=== PATIENT | male | born 1940 | race African-American/Black ===

== ENCOUNTER 2018-06-07 06:10 | Observation (INO) | payer OTHER ==
[2018-05-22 14:51] LABS: INR 1.07; PROTHROMBIN TIME 13.1 seconds (11.9-14.5)
[2018-05-22 14:52] LABS: PARTIAL THROMBOPLASTIN TIME 28.4 seconds (23.8-35.5)
[2018-05-22 14:55] LABS: BASOPHILS % 0.6 % (0.0-1.0); EOSINOPHILS # (AUTO) 0.3 (0.0-0.4); EOSINOPHILS % 4.2 % (0.0-6.0); HEMATOCRIT 42.8 % (38.2-49.6); HEMOGLOBIN 13.8 g/dL (14.0-18.0); LYMPHOCYTES # (AUTO) 2.1 (1.0-3.2); LYMPHOCYTES % 32.3 % (18.0-39.1); MEAN CORPUSCULAR HEMOGLOBIN 27.8 pg (28-32); MEAN CORPUSCULAR HGB CONC 32.2 g/dL (31-35); MEAN CORPUSCULAR VOLUME 86.3 fL (81-99); MONOCYTES # (AUTO) 0.5 (0.2-0.8); MONOCYTES % 8.5 % (4.4-11.3); NEUTROPHILS # (AUTO) 3.5 (2.1-6.9); NEUTROPHILS % 54.2 % (38.7-80.0); PLATELET COUNT 192 x10e3/uL (140-360); RED BLOOD COUNT 4.96 x10e6/uL (4.3-5.7); RED CELL DISTRIBUTION WIDTH 14.6 % (11.7-14.4)
[2018-05-22 14:59] LABS: ANION GAP 15.4 mmol/L (8-16); BLOOD UREA NITROGEN 20 mg/dL (7-26); BUN/CREATININE RATIO 17 (6-25); CALCIUM 11.4 mg/dL (8.4-10.2); CARBON DIOXIDE 23 mmol/L (22-29); CHLORIDE 110 mmol/L (98-107); CREATININE, SERUM 1.16 mg/dL (0.72-1.25); EST GLOMERULAR FILTRATION RATE > 60 ML/MIN (60-); GLUCOSE 78 mg/dL (74-118); POTASSIUM 4.4 mmol/L (3.5-5.1); SODIUM 144 mmol/L (136-145)
--- NOTE | 2018-05-22 15:32 | Diagnostic Imaging Report ---
Frontal and lateral views of the chest. HISTORY: Preop, back surgery COMPARISON: None available. DISCUSSION: Lungs: The lungs are mildly hyperinflated. No evidence of a consolidative pneumonia or pulmonary alveolar edema. A 3.7 cm curvilinear density with central lucency projects superior to the periphery of the left hemidiaphragm on the frontal view. Pleura: No pleural effusion or pneumothorax. Heart and mediastinum: The cardiomediastinal silhouette appears unremarkable. Calcified left hilar lymph nodes. Bones: No acute osseous lesion. IMPRESSION: 1. No consolidative pneumonia or pulmonary edema. 2. Possible 3.7 cm left peripheral diaphragmatic hernia. A follow-up CT of the chest without contrast would provide further characterization. Signed by: Dr. Clint Thomas D.O., M.M.M. on 05/22/2018 3:27 PM
[~2018-06-07] VITALS: Ht 172.7 cm; Wt 89.6 kg
[~2018-06-07 06:10] MED LIST: ARICEPT5 MG PO; ASPIR 8181 MG PO; ATORVASTATIN CA20 MG PO; CALCIUM CARBON500 MG PO; CENTRUM SILVER1 EAC3 PO; GLYCOPYRROLATE1 MG PO; LEVETIRACETAM500 MG PO; VITAMIN D3400 UNIT PO
[2018-06-07] MEDS ORDERED: BACITRACIN 50,000 UNIT VIAL ONE (06:35)
[2018-06-07] MEDS ORDERED: THROMBIN FOR SOLN 5,000 UNIT VIAL ONE (06:35)
[2018-06-07] MEDS ORDERED: BUPIVACAINE 0.5%/EPI 30 ML SDV INJ ONE (06:35)
[2018-06-07] MEDS ORDERED: GELATIN SPONGE 12-7MM ONE (06:36)
[2018-06-07] MEDS ORDERED: CEFAZOLIN SOD 1 GM VIAL ONE (06:44)
[2018-06-07] MEDS ORDERED: LIDOCAINE HCL (LTA) 4 ML SOLN ONE (07:03)
[2018-06-07] MEDS ORDERED: HYDROMORPHONE 2MG/ML 2 MG/ML ML IV PRN (09:15)
[2018-06-07] MEDS ORDERED: PROMETHAZINE HCL (IM) 25 MG/ML VIAL IM PRN (09:15)
[2018-06-07] MEDS ORDERED: ACETAMINOPHEN 325 MG TAB PO PRN (09:15)
[2018-06-07] MEDS ORDERED: ONDANSETRON HCL INJ 2 MG/ML VIAL IV PRN (09:15)
[2018-06-07] MEDS ORDERED: CEPACOL SORE THROAT LOZENGES PO PRN (09:15)
[2018-06-07] MEDS ORDERED: MORPHINE SULFATE 5 MG/ML VIAL IM PRN (09:15)
[2018-06-07] MEDS ORDERED: CARISOPRODOL 350 MG TAB PO PRN (09:15)
[2018-06-07] MEDS ORDERED: MAGNESIUM/ALUMINUM/SIMETHICONE 30 ML UDC PO PRN (09:15)
--- NOTE | 2018-06-07 09:54 | Operative Report ---
DATE OF PROCEDURE: June 07, 2018 PREOPERATIVE DIAGNOSIS: Right L4-L5 lateral recess stenosis, M48.062. POSTOPERATIVE DIAGNOSIS: Right L4-L5 lateral recess stenosis, M48.062. PROCEDURE: Right L4-L5 laminotomy, medial facetectomy and microsurgical lateral recess decompression, 66940. ANESTHESIA: General. INDICATIONS: Patient is a 78-year-old man who presents with right L4-L5 lateral recess stenosis and was taken to the operating room for microsurgical lateral recess decompression. PROCEDURE: After induction of general anesthesia, the patient was placed on the operating table in the prone position over a Clifford frame. Lumbar region was prepped and draped in a sterile fashion. A preoperative x-ray was obtained. A small midline incision was created. Lumbar fascia was opened to the right of the midline, and subperiosteal dissection was carried out to expose the right side of L4 and L5 laminae and the medial aspect of the hypertrophic facet joint. A 2nd x-ray confirmed correct localization. The operating microscope was brought in. A high-speed drill equipped with a mary bur was used to drill the inferior aspect of lamina of L4 and the medial aspect of the L4-L5 facet joint, and the superior rim of the lamina of L5. The hypertrophic ligamentum flavum was resected. The dural sac and L5 traversing nerve root were fully exposed and decompressed. Meticulous hemostasis was secured. The dura was covered with a piece of fat harvested from the subcutaneous space. The lumbar fascia was closed with 0 Vicryl sutures. Subcutaneous layer was closed with 2-0 Vicryl sutures. The skin was closed with 3-0 Monocryl sutures in a subcuticular fashion. Steri-Strips and a dressing were applied. The patient was awakened, extubated and taken to the postanesthesia care unit in stable condition. No intraoperative complications were encountered. Estimated blood loss was 10 mL. Job#: [id number] RI
[2018-06-07 10:18] VITALS: BP 162/86
[2018-06-07] MEDS: LACTATED RINGER'S 1,000 ML IV SCH ×2 (11:20→22:28)
[2018-06-07 11:36] VITALS: BP 162/86
[2018-06-07] MEDS: OXYCODONE/ACETAMINOPHEN 5-325 1 EACH TABLET PO PRN ×2 (11:40→22:05)
[2018-06-07] MEDS: MULTIVITAMINS/MINERALS TAB PO SCH (11:51)
[2018-06-07] MEDS: CHOLECALCIFEROL 1,000 UNIT TAB PO SCH (11:51)
[2018-06-07] MEDS ORDERED: CEFAZOLIN SOD 1 GM/D5W 50ML 50 ML IV SCH (14:00)
[2018-06-07 15:44] VITALS: BP 113/67
[2018-06-07] MEDS: GLYCOPYRROLATE 1 MG TAB PO SCH ×2 (16:00→21:50)
[2018-06-07] MEDS: CEFAZOLIN SOD 1 GM VIAL IV SCH (16:08)
[2018-06-07] MEDS ORDERED: ONDANSETRON HCL INJ 2 MG/ML VIAL ONE (18:45)
[2018-06-07] MEDS ORDERED: ACETAMINOPHEN 1000 MG/100 ML IV ONE (18:45)
[2018-06-07] MEDS ORDERED: LIDOCAINE HCL 2% LOCAL INJ 5 ML SDV VIAL INJ ONE (18:45)
[2018-06-07] MEDS ORDERED: DEXAMETHASONE SOD PHOS INJ 4 MG/ML VIAL ONE (18:45)
[2018-06-07] MEDS ORDERED: GLYCOPYRROLATE INJ 1MG/ 5 ML SYR ONE (18:45)
[2018-06-07] MEDS ORDERED: ROCURONIUM BROMIDE 10 MG/ML 5ML VIAL ONE (18:45)
[2018-06-07] MEDS ORDERED: PROPOFOL IV EMULSION 10 MG/ML 20 ML VIAL ONE (18:45)
[2018-06-07] MEDS ORDERED: SEVOFLURANE INHAL SOLN 250 ML PEN BTL ONE (18:45)
[2018-06-07] MEDS ORDERED: MIDAZOLAM HCL 2 MG/2 ML VIAL ONE (18:57)
[2018-06-07] MEDS ORDERED: FENTANYL CITRATE/PF 100MCG/2 ML INJ ONE (18:57)
[2018-06-07 20:00] VITALS: BP 110/62
[2018-06-07] MEDS ORDERED: ATORVASTATIN 40 MG TAB PO SCH (21:00)
[2018-06-07] MEDS ORDERED: ATORVASTATIN 20 MG TAB PO SCH (21:00)
[2018-06-07] MEDS ORDERED: DONEPEZIL HCL 5 MG TAB PO SCH (21:00)
[2018-06-07] MEDS ORDERED: ZOLPIDEM TARTRATE 5 MG TAB PO PRN (21:00)
[2018-06-07] MEDS: LEVETIRACETAM 500 MG TAB PO SCH (21:50)
[2018-06-07] MEDS ORDERED: MORPHINE SULFATE INJ 10 MG/ML IM PRN ×2 (22:00)
[2018-06-08] VITALS: BP 118/66
[2018-06-08] MEDS: LACTATED RINGER'S 1,000 ML IV SCH ×2 (01:44→08:31)
[2018-06-08 04:00] VITALS: BP 123/67
[2018-06-08 08:20] VITALS: BP 126/68
[2018-06-08] MEDS: GLYCOPYRROLATE 1 MG TAB PO SCH (08:31)
[2018-06-08] MEDS: CEFAZOLIN SOD 1 GM VIAL IV SCH ×2 (08:31)
[2018-06-08] MEDS: LEVETIRACETAM 500 MG TAB PO SCH (08:31)
[2018-06-08] MEDS: CHOLECALCIFEROL 1,000 UNIT TAB PO SCH (08:31)
[2018-06-08] MEDS: MULTIVITAMINS/MINERALS TAB PO SCH (08:31)
[2018-06-08 09:00] VITALS: BP 126/68
[2018-06-08] MEDS ORDERED: NON-FORMULARY MEDICATION (Cholecalciferol (Vitamin D3) (Vitamin D3) 50 MCG) PO SCH (09:00)
[2018-06-08] MEDS ORDERED: OYST-CAL-D 500MG TABLET PO SCH (09:00)
[2018-06-08] MEDS ORDERED: NON-FORMULARY MEDICATION (Mu-Vits-Min Th/Lycopene/Lutein (Centrum Silver Tablet) 1 TAB) PO SCH (09:00)
[2018-06-08] MEDS ORDERED: NORCO 7.5-3251 EACH PO (09:47)
--- OUTSIDE RECORDS SUMMARY | 2018-06-19 10:26 | XMS REPORT ---
Author Author [facility] Address Unknown Phone Unavailable Care Team Providers Care Cutting Table Operator Name Role Phone RENÉE ALLEN Unavailable Unavailable Problems This patient has no known problems. Allergies, Adverse Reactions, Alerts This patient has no known allergies or adverse reactions. Medications This patient has no known medications. Results Test Description Test Time Test Comments Text Results Atomic Results Result Comments CHEST 2 VIEWS 2018-05-22 15:24:00 [facility] [address] [place], [place] [address] Patient Name: BRENDA ARROYO MR #: [id number] : 1940 Age/Sex: 78/M Req #: [id number] Adm Physician: Ordered by: RENÉE ALLEN MD Report #: [id number] Location: OR Room/Bed: Procedure: [id number] DX/CHEST 2 VIEWS Exam Date: 05/22/18 Exam Time: 1450 REPORT STATUS: Signed Frontal and lateral views of the chest. HISTORY: Preop, back surgery COMPARISON: None available. DISCUSSION: Lungs: The lungs are mildly hyperinflated. No evidence of a consolidative pneumonia or pulmonary alveolar edema. A 3.7 cm curvilinear density with central lucency projects superior to the periphery of the left hemidiaphragm on the frontal view. Pleura: No pleural effusion or pneumothorax. Heart and mediastinum: The cardiomediastinal silhouette appears unremarkable. Calcified left hilar lymph nodes. Bones: No acute osseous lesion. IMPRESSION: 1. No consolidative pneumonia or pulmonary edema. 2. Possible 3.7 cm left peripheral diaphragmatic hernia. A follow-up CT of the chest without contrast would provide further characterization. Signed by: Dr. Jose Angel Thomas D.O., M.M.M. on 05/22/2018 3:27 PM Dictated By: JOSE ANGEL THOMAS DO 1527 Transcribed By: BRICE on 05/22/18 1527 COPY TO: RENÉE ALLEN MD
--- OUTSIDE RECORDS SUMMARY | 2018-06-19 10:26 | XMS REPORT | Clinical Summary ---
Author Author [facility] Address Unknown Phone Unavailable Care Team Providers Care Liability Claims Manager Name Role Phone Barrington Aparicio MD PCP Allergies No Known Allergies Current Medications Prescription Sig. Disp. Refills Start End Date Status Date lidocaine (LIDODERM) 5 % Place 1 patch on the skin 30 patch 0 08/28/20 09/27/19 daily for 30 days. Remove 17 18 & Discard patch within 12 hours or as directed by Active Problems Not on file Encounters Date Type Specialty Care Team Description 08/28/2017 Emergency Emergency Medicine Claude Steele, EQUIPMENT RECORDS SUPERVISOR-C Acute right-sided low Jasiel Mari, back pain with right-sided sciatica (Primary Dx); Right hip pain after 06/06/2017 Social History Tobacco Use Types Packs/Day Years Used Date Never Assessed Sex Assigned at Date Recorded Not on file Last Filed Vital Signs Vital Sign Reading Time Taken Blood Pressure 146/76 08/28/2017 11:40 PM [employer]ACK[facility] STR[employer] Pulse 67 08/28/2017 11:40 PM [employer] [employer] Temperature 36.8 C (98.3 F) 08/28/2017 11:40 PM [employer]ACKET STRING[employer] Respiratory Rate 18 08/28/2017 11:40 PM [employer]ACKET STRINGER Oxygen Saturation 94% 08/28/2017 11:40 PM [employer]ACK[employer] Inhaled Oxygen - - Concentration Weight - - Height 172.7 cm (5' 8") 08/28/2017 9:01 PM [employer]ACK[employer] Body Mass Index - - Plan of Treatment Date Type Specialty Care Team Description 06/27/2018 Office Visit Physical Therapy System, Provider Not In, Isaiah Griggs MD [address], [address] [place], [place] [address] Lino Robles, PT Health Maintenance Due Date Last Done Comments SHINGRIX VACCINE (#1) 1991 ZOSTER VACCINE 2001 PNEUMOCOCCAL 2006 POLYSACCHARIDE VACCINE AGE 65 AND OVER PNEUMOCOCCAL-13 2006 INFLUENZA VACCINE 04/04/2018 Procedures Procedure Name Priority Date/Time Associated Diagnosis Comments XR LUMBAR SPINE COMPLETE STAT 08/28/2017 Results for this 4+ VW 10:10 PM RACKET STRINGER procedure are in the results section. XR HIP 2-3 VIEWS RIGHT STAT 08/28/2017 Results for this 10:10 PM RACKET STRINGER procedure are in the results section. after 06/06/2017 Results * XR Lumbar Spine Complete 4+ Vw (08/28/2017 10:10 PM) Narrative Performed At EXAMINATION: XR LUMBAR SPINE COMPLETE 4VW [facility] CLINICAL HISTORY: BACK PAINUNSPECIFIED COMPARISON:None IMPRESSION: No displaced fracture. Moderate degenerative disc disease L4-5 with mild degenerative disc disease L3-4. Small anterior osteophytes throughout the lumbar spine. Moderate facet arthropathy L5-S1, and at least mild facet arthropathy L4-5. Calcified atherosclerosis abdominal aorta. [id number] Procedure Note Interface, Radiology Results Incoming - 08/28/2017 10:18 PM RACKET STRINGER EXAMINATION: XR LUMBAR SPINE COMPLETE 4 VW CLINICAL HISTORY: BACK PAIN UNSPECIFIED COMPARISON: None IMPRESSION: No displaced fracture. Moderate degenerative disc disease L4-5 with mild degenerative disc disease L3-4. Small anterior osteophytes throughout the lumbar spine. Moderate facet arthropathy L5-S1, and at least mild facet arthropathy L4-5. Calcified atherosclerosis abdominal aorta. [id number] Performing Organization Address City/State/Zipcode Phone Number [facility] [address] [place] [address] * XR Hip 2-3 View Right (08/28/2017 10:10 PM) Narrative Performed At EXAM:XR HIP 2-3 VIEWS RIGHT [facility] CLINICAL HISTORY:right hip pain COMPARISON:None. IMPRESSION: 1.No evidence of acute right displaced right hip fracture or dislocation. Mild to moderate degenerative changes of the bilateral hips noted. Multiple pelvic phleboliths identified. [facility]-[id number] Procedure Note Interface, Radiology Results Incoming - 08/28/2017 10:44 PM RACKET STRINGER EXAM: XR HIP 2-3 VIEWS RIGHT CLINICAL HISTORY: right hip pain COMPARISON: None. IMPRESSION: 1. No evidence of acute right displaced right hip fracture or dislocation. Mild to moderate degenerative changes of the bilateral hips noted. Multiple pelvic phleboliths identified. [facility]-[id number] Performing Organization Address City/State/Zipcode Phone Number [facility] [address] [place] [address] after 06/06/2017 Insurance Payer Benefit Subscriber ID Type Phone Address Plan / Group [employer] xxxxxxxxx HMO MCR xxxxxxxxxxx FOR LIFE
--- OUTSIDE RECORDS SUMMARY | 2018-06-19 10:35 | XMS REPORT | Clinical Summary ---
Author Author [facility] Address Unknown Phone Unavailable Care Team Providers Care Automatic Profile Sander Operator Name Role Phone Barrington Aparicio MD PCP [...] Description 08/28/2017 Emergency Emergency Medicine Claude Steele, RV DETAILER-C Acute right-sided low Jasiel Mari, back pain with right-sided sciatica (Primary Dx); Right hip pain after 06/06/2017 Social History Tobacco Use Types Packs/Day Years Used Date Never Assessed Sex Assigned at Date Recorded Not on file Last Filed Vital Signs Vital Sign Reading Time Taken Blood Pressure 146/76 08/28/2017 11:40 PM FOLDING MACHINE FEEDER Pulse 67 08/28/2017 11:40 PM FOLDING MACHINE FEEDER Temperature 36.8 C (98.3 F) 08/28/2017 11:40 PM FOLDING MACHINE FEEDER Respiratory Rate 18 08/28/2017 11:40 PM FOLDING MACHINE FEEDER Oxygen Saturation 94% 08/28/2017 11:40 PM FOLDING MACHINE FEEDER Inhaled Oxygen - - Concentration Weight - - Height 172.7 cm (5' 8") 08/28/2017 9:01 PM FOLDING MACHINE FEEDER Body Mass Index - - Plan of Treatment Date Type Specialty Care Team Description 06/27/2018 Office Visit Physical Therapy System, Provider Not In, Isaiah Griggs MD [address], [address] [place], [place] [address] Lino Robles, PT Health Maintenance Due Date Last Done Comments SHINGRIX VACCINE (#1) 1991 ZOSTER VACCINE 2001 PNEUMOCOCCAL 2006 POLYSACCHARIDE VACCINE AGE 65 AND OVER PNEUMOCOCCAL-13 2006 INFLUENZA VACCINE 04/04/2018 Procedures Procedure Name Priority Date/Time Associated Diagnosis Comments XR LUMBAR SPINE COMPLETE STAT 08/28/2017 Results for this 4+ VW 10:10 PM FOLDING MACHINE FEEDER procedure are in the results section. XR HIP 2-3 VIEWS RIGHT STAT 08/28/2017 Results for this 10:10 PM FOLDING MACHINE FEEDER procedure are in the results section. after [...] facet arthropathy L4-5. Calcified atherosclerosis abdominal aorta. [id number] Procedure Note Interface, Radiology Results Incoming - 08/28/2017 10:18 PM FOLDING MACHINE FEEDER EXAMINATION: XR LUMBAR SPINE COMPLETE 4 VW CLINICAL HISTORY: BACK PAIN UNSPECIFIED COMPARISON: None IMPRESSION: No displaced fracture. Moderate degenerative disc disease L4-5 with mild degenerative disc disease L3-4. Small anterior osteophytes throughout the lumbar spine. Moderate facet arthropathy L5-S1, and at least mild facet arthropathy L4-5. Calcified atherosclerosis abdominal aorta. [id number] Performing Organization Address City/State/Zipcode Phone Number [facility] [address] [place] [address] * XR Hip 2-3 View Right (08/28/2017 10:10 PM) Narrative Performed At EXAM:XR HIP 2-3 VIEWS RIGHT [facility] CLINICAL HISTORY:right hip pain COMPARISON:None. IMPRESSION: 1.No evidence of acute right displaced right hip fracture or dislocation. Mild to moderate degenerative changes of the bilateral hips noted. Multiple pelvic phleboliths identified. [id number] Procedure Note Interface, Radiology Results Incoming - 08/28/2017 10:44 PM FOLDING MACHINE FEEDER EXAM: XR HIP 2-3 VIEWS RIGHT CLINICAL HISTORY: right hip pain COMPARISON: None. IMPRESSION: 1. No evidence of acute right displaced right hip fracture or dislocation. Mild to moderate degenerative changes of the bilateral hips noted. Multiple pelvic phleboliths identified. [facility]-[id number] Performing Organization Address City/State/Zipcode Phone Number [facility] [address] [place] [address] after 06/06/2017 Insurance Payer Benefit Subscriber ID Type Phone Address Plan / Group [employer] xxxxxxxxx HMO MCR xxxxxxxxxxx FOR LIFE
== END 2018-06-08 10:05 | disposition home or self-care (01) ==
LOC: OR 06:10 → PACU V 09:05 → IMCU 10:33
PROVIDERS: ADMIT Neurological Surgery; ATTEND Neurological Surgery
DX: M48.062 Spinal stenosis, lumbar region with neurogenic claudication (principal); E78.5 Hyperlipidemia, unspecified; Z95.1 Presence of aortocoronary bypass graft; G40.909 Epilepsy, unspecified, not intractable, without status epilepticus; Z96.652 Presence of left artificial knee joint
CPT/HCPCS: 36415; 63047; 71046; 72020; 80048; 85025; 85610; 85730; 86850 ×2; 86900 ×2; 88304; 93005; G0378 ×2; J0690 ×2; J1100; J2001; J2250; J2405; J3490; J7120; J2270; J2550